=== PATIENT | female | born 1960 | race Caucasian/White ===

== ENCOUNTER 2021-02-19 02:20 | Outpatient (CLI) | payer MEDICAID, SELFPAY ==
--- NOTE | 2021-02-19 | DI.MRI_ITS ---
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 TECHNIQUE: Multiplanar multisequence MRA of the brain was performed. COMPARISON: None. FINDINGS: Carotid Arteries: No aneurysm, occlusion or significant stenosis. Anterior Cerebral Arteries: Right: No aneurysm, occlusion or significant stenosis. Left: No aneurysm, occlusion or significant stenosis. Middle Cerebral Arteries: Right: No aneurysm, occlusion or significant stenosis. Left: No aneurysm, occlusion or significant stenosis. Posterior Cerebral Arteries: Right: origin. No aneurysm, occlusion or significant stenosis. Left: No aneurysm, occlusion or significant stenosis. Vertebral Arteries: Right: Diminutive Left: Dominant. No aneurysm, occlusion or significant stenosis. Basilar Artery: No aneurysm, occlusion or significant stenosis. IMPRESSION: Normal MRA examination of the [place]. DATA REPOSITORY:
--- NOTE | 2021-02-19 | DI.MRI_ITS ---
Exam(s) MR BRAIN WO/W EXAM: MR BRAIN WO/W CLINICAL HISTORY: episodic ataxia,g11.8,transient altered mental status,r41.82. TECHNIQUE: Multiplanar multisequence MRI of the brain was performed. CONTRAST MATERIAL: IV Contrast: 16 ML of Dotarem contrast administered. COMPARISON: No exams were available for comparison FINDINGS: VENTRICLES AND EXTRA AXIAL SPACES: Normal in size and morphology for the patient's age. HEMORRHAGE: None. CEREBRAL PARENCHYMA: No focus of restricted diffusion to suggest acute infarct. No space-occupying le kim identified. MIDLINE SHIFT: None. BRAINSTEM/CEREBELLUM: Normal. No significant atrophy. CALVARIUM: Normal. ENHANCEMENT: No suspicious enhancement identified. VISUALIZED PARANASAL SINUSES/MASTOIDS: Sinuses clear. Right mastoid effusion. OTHER FINDINGS: Vascular flow voids are intact. IMPRESSION: Right mastoid effusion, otherwise unremarkable MRI of the brain. DATA REPOSITORY:
[2021-02-19] MEDS: Gadoterate meglumine 20 ML VIAL 16 ML IVP (09:52)
[2021-02-19] MEDS: Normal Saline Flush 10 ML SYR IVP (09:54)
== END 2021-02-19 02:40 ==
PROVIDERS: Visit Provider Physician Assistant Medical
DX: R41.82 Altered mental status, unspecified (principal); G11.8 Other hereditary ataxias; H74.8X1 Other specified disorders of right middle ear and mastoid
CPT/HCPCS: 70544; 70553